=== PATIENT | female | born 1955 | race Caucasian/White ===

== ENCOUNTER 2024-12-18 15:28 | Inpatient (IN) ==
--- NOTE | 2024-12-18 16:19 | XRay Report ---
Clinical History: Shortness of breath Technique: A frontal view of the chest was obtained Findings: There is mild patchy opacity in the right upper lobe. The heart size is within normal limits. No pleural effusion or pneumothorax is seen. There is no definite pulmonary nodule. No fracture is noted. No foreign body is seen Impression: Suspected mild right upper lobe bronchopneumonia Electronically signed by Janusz Rollins 12-18-2024 4:19 PM
[2024-12-18 17:38] LABS: BUN Creatinine Ratio 17.4 (10-20); Blood Urea Nitrogen 8 mg/dl (6-23); Calcium 9.4 mg/dl (8.6-10.3); Carbon Dioxide > 45 mmol/L (21-32); Chloride 91 mmol/L (98-107); Glucose 97 mg/dl (70-99(Fasting)); Sodium 141 mmol/L (136-145)
[2024-12-18 17:55] LABS: HCO3 VBG 54 mmol/L; Oxygen Saturation VBG 84.6 %; PCO2 VBG 91 mmHg (38-50); PO2 VBG 52 mmHg; pH VBG 7.38 (7.36-7.41)
[2024-12-18 18:06] LABS: Adenovirus PCR Not Detected (NotDetected); Bordetella parapertussis PCR Not Detected (NotDetected); Bordetella pertussis PCR Not Detected (NotDetected); Chlamydia pneumoniae PCR Not Detected (NotDetected); Coronavirus 229E PCR Not Detected (NotDetected); Coronavirus CoV-2 (COVID19)PCR Not Detected (NotDetected); Coronavirus HKU1 PCR Not Detected (NotDetected); Coronavirus NL63 PCR Not Detected (NotDetected); Coronavirus OC43PCR Not Detected (NotDetected); Human Metapneumovirus PCR Not Detected (NotDetected); Influenza A PCR Not Detected (NotDetected); Influenza B PCR Not Detected (NotDetected); Mycoplasma pneumoniae PCR Not Detected (NotDetected); Parainfluenza Virus 1 PCR Not Detected (NotDetected); Parainfluenza Virus 2 PCR Not Detected (NotDetected); Parainfluenza Virus 3 PCR Not Detected (NotDetected); Parainfluenza Virus 4 PCR Not Detected (NotDetected); Respiratory Syncytial VirusPCR Not Detected (NotDetected); Rhinovirus/Enterovirus PCR Not Detected (NotDetected)
[2024-12-18] MEDS: ALBUT/IPRATROP 3MG/0.5MG NEB 3 ML VIAL NEB ONE (18:39)
[2024-12-18] MEDS: methylPREDNISolone 125 MG/2 ML VIAL IV STA (18:40)
[2024-12-18 18:59] LABS: Potassium 3.7 mmol/L (3.5-5.1)
[2024-12-18 19:10] LABS: Basophils # (auto) 0.02 K/uL (0.00-0.20); Basophils % (auto) 0.2 %; Eosinophils # (auto) 0.15 K/uL (0.00-0.50); Eosinophils % (auto) 1.5 %; Hematocrit (blood only) 36.7 % (37.0-47.0); Hemoglobin 11.2 g/dl (12.0-16.0); Immature Granulocytes # (auto) 0.02 K/uL (0.01-0.20); Immature Granulocytes % (auto) 0.2 %; Lymphocytes # (auto) 2.47 K/uL (1.20-3.40); Mean Corpuscular Hemoglobin 32.6 pg (25.0-34.0); Mean Corpuscular Hgb Conc 30.5 g/dL (32.0-36.0); Mean Corpuscular Volume 106.7 fL (80.0-100.0); Mean Platelet Volume 9.5 fL (9.4-12.4); Monocytes # (auto) 0.85 K/uL (0.11-0.59); Monocytes % (auto) 8.3 %; Neutrophils # (auto) 6.79 K/uL (1.40-6.50); Neutrophils % (auto) 65.8 %; Platelet Count 363 K/uL (130-400); RDW Coefficient of Variation 13.3 % (11.5-14.5); RDW Standard Deviation 52.3 fL (36.4-46.3); Red Blood Count 3.44 M/uL (4.20-5.40)
[2024-12-18] MEDS: cefTRIAXone SODIUM 2,000 MG/50 ML BAG IV STA (19:13)
[2024-12-18] MEDS: AZITHROMYCIN 250 MG TAB PO ONE (19:13)
--- NOTE | 2024-12-18 20:33 | History & Physical Report ---
Date of Service December 18, 2024 Assessment & Plan (1) Pneumonia: Plan: .Patient reports rigors and "not feeling right". She reports feeling similarly in the past when she had PNA. Patient's CXR is suggestive of possible RUL bronchopneumonia. She is afebrile, HD stable, no leukocytosis. -Admit to medical -Check Procalcitonin, CBC with AM labs -Ceftriaxone and Azithromycin for treatment of presumed CAP -Patient will need to have followup CXR to document clearance of her pneumonia -Flutter valve and incentive spirometry (2) COPD (chronic obstructive pulmonary disease): Plan: Chronic. Patient with compensated chronic hypercarbic respiratory failure. Minimal wheezing noted on exam -Continue supplemental O2 -DuoNeb q 4 hours -Albuterol q3 hours PRN -Smoking cessation counseling -Nicotine patch per patient request -BiPAP as needed -Prednisone taper Patient is scheduled to see Pulmonary on 01/10/25. She has never had formal PFTs. Should have a sleep study as well - suspect may need nocturnal NIPPV (3) HLD (hyperlipidemia): Plan: Chronic. Stable -Continue Atorvastatin 40mg po daily (4) HTN (hypertension): Plan: Chronic. Blood pressure is borderline low -Will hold Amlodipine, Losartan and Lasix -Continue Carvedilol -Monitor -LR at 80mL/hr x 1L ordered -Encourage PO intake Plan GERD -Continue Protonix 40mg po daily Anxiety -Continue Trazodone -Continue Duloxetine and Clonazepam F/E/N - LR at 80mL/hr x 1L, electroltyes WNL, heart healthy diet as tolerated Ppx - Lvoenox for DVT prophylaxis Code - Full Dispo - Observation to medical History of Present Illness Chief Complaint: weakness, dizziness Primary Care Provider: Kaden Toth Kelly Bundy is a 69yo female with history of COPD on home O2 3L, MS, HTN and HLP presenting from home with complaint of "not feeling right". Patient thinks that yesterday she felt ok with no acute complaints. Today she woke up and felt very dizzy and lightheaded, she had some blurry vision as well as difficulty remembering the day before. Also with generalized weakness, rigors and profuse, watery diarrhea. Patient had outpatient labs performed and was contacted and told to come to the ER due to high bicarbonate levels. Patient denies fever, chills, chest pain, tightness, palpitations. No abdominal pain, nausea, vomiting. In the ER patient placed on BiPAP due to elevation pCO2 levels on VBG Allergies Allergy/AdvReac Type Severity Reaction Status Date / Time amoxicillin [From Augmentin] AdvReac Gastrointestinal Verified 12/18/24 21:06 Upset clavulanic acid AdvReac Gastrointestinal Verified 12/18/24 21:06 [From Augmentin] Upset lisinopril AdvReac Cough Verified 12/18/24 21:06 Home Medications Medication Instructions Recorded Confirmed Type cetirizine 10 mg tablet (Zyrtec) 10 mg PO DAILY 10/03/24 12/18/24 History amlodipine 10 mg tablet 10 mg PO DAILY 12/18/24 12/18/24 History atorvastatin 40 mg tablet 40 mg PO DAILY 12/18/24 12/18/24 History carvedilol 6.25 mg tablet 6.25 mg PO BID 12/18/24 12/18/24 History clonazepam 2 mg tablet 1 mg PO QID 12/18/24 12/18/24 History duloxetine 60 mg capsule,delayed 120 mg PO DAILY 12/18/24 12/18/24 History release ferrous sulfate 325 mg (65 mg 325 mg PO DAILY 12/18/24 12/18/24 History iron) tablet folic acid 1 mg tablet 1 mg PO DAILY 12/18/24 12/18/24 History furosemide 40 mg tablet 40 mg PO DAILY 12/18/24 12/18/24 History gabapentin 800 mg tablet 800 mg PO TID 12/18/24 12/18/24 History losartan 100 mg tablet 100 mg PO DAILY 12/18/24 12/18/24 History pantoprazole 40 mg tablet,delayed 40 mg PO DAILY 12/18/24 12/18/24 History release trazodone 100 mg tablet 200 mg PO HS 12/18/24 12/18/24 History Past Med/Surg History Problem List COPD (chronic obstructive pulmonary disease) Pneumonia (Acute) Cigarette smoker Had quit smoking for a bit, but started up again. Has been smoking consistently for 2 months, but has previously smoked for 50 years. Pt unsure of what age she was when she started. Currently smokes 2 pk/day. Medical History HLD (hyperlipidemia) HTN (hypertension) Social History Smoking Status: Light tobacco smoker Tobacco Type: Cigarettes Do You Dip or Chew Tobacco: No; Hx Alcohol Use: No Hx Substance Use: No Preferred Language: Icelandic Communication Ability: Effective Physicist Cryogenics Required: No Current Living Situation: Spouse and Family Feels Safe at Home: Yes Safety Concerns: Feels Safe At This Time Assistive Devices: Denture - Upper, Denture - Lower, Glasses and Walker Review of Systems Review of Systems: All systems reviewed & are unremarkable except as noted in HPI & below Physical Exam Physical Exam: General: patient resting comfortably, NAD, non-toxic in appearance, AA&O x 4, BiPAP in place Skin: warm, dry, intact, no rashes or lesions HEENT: NC/AT, PERRL, EOMI, anicteric sclera, conjunctiva without injection, external ear normal to inspection and nontender, nares patent, moist mucus membranes, dentition intact, no oropharyngeal lesions, neck supple, trachea midline, no LAD, no thyromegaly, no JVD Heart: +S1/S2, regular, no m/r/g Lungs: equal air entry bilaterally, scattered end-expiratory wheezing, no rhonchi or rales Abd: +BS, soft, NT/ND, no masses/organomegaly/ascites Ext: warm, 2+ pulses in UE/LE bilaterally, no clubbing/cyanosis or edema Neuro: nonfocal, patient AA&O x 4, speech intact, no facial droop, moving all extremities on command with equal strength 5/5 Results & Data Results & Data Vital Signs (Past 12 Hours) Vital Signs Temp Pulse Resp BP Pulse Ox O2 Del Method O2 Flow Rate 12/18/24 20:00 80 20 111/76 90 12/18/24 19:30 79 14 85/63 L 94 12/18/24 19:00 84 18 136/77 94 BiPAP 12/18/24 18:31 79 18 95 12/18/24 17:41 80 12/18/24 15:36 37.4 C 81 20 161/87 H 95 Nasal Cannula 5 FiO2 12/18/24 20:00 12/18/24 19:30 12/18/24 19:00 12/18/24 18:31 40 12/18/24 17:41 02/19/25 15:36 Laboratory Results Laboratory Results WBC 10.30 K/ul (4.8-10.8) 12/18/24 18:52 RBC 3.44 M/uL (4.20-5.40) L 12/18/24 18:52 Hgb 11.2 g/dl (12.0-16.0) L 12/18/24 18:52 Hct 36.7 % (37.0-47.0) L 12/18/24 18:52 MCV 106.7 fL (80.0-100.0) H 12/18/24 18:52 MCH 32.6 pg (25.0-34.0) 12/18/24 18:52 MCHC 30.5 g/dL (32.0-36.0) L 12/18/24 18:52 RDW Std Deviation 52.3 fL (36.4-46.3) H 12/18/24 18:52 RDW Coeff of Deja 13.3 % (11.5-14.5) 12/18/24 18:52 Plt Count 363 K/uL (130-400) 12/18/24 18:52 MPV 9.5 fL (9.4-12.4) 12/18/24 18:52 Immature Gran % (Auto) 0.2 % 12/18/24 18:52 Neut % (Auto) 65.8 % 12/18/24 18:52 Lymph % (Auto) 24.0 % 12/18/24 18:52 Stone % (Auto) 8.3 % 12/18/24 18:52 Eos % (Auto) 1.5 % 12/18/24 18:52 Baso % (Auto) 0.2 % 12/18/24 18:52 Neut # (Auto) 6.79 K/uL (1.40-6.50) H 12/18/24 18:52 Lymph # (Auto) 2.47 K/uL (1.20-3.40) 12/18/24 18:52 Stone # (Auto) 0.85 K/uL (0.11-0.59) H 12/18/24 18:52 Eos # (Auto) 0.15 K/uL (0.00-0.50) 12/18/24 18:52 Baso # (Auto) 0.02 K/uL (0.00-0.20) 12/18/24 18:52 Immature Gran # (Auto) 0.02 K/uL (0.01-0.20) 12/18/24 18:52 Absolute Nucleated RBC Cancelled 12/18/24 16:53 Nucleated RBC % (auto) Cancelled 12/18/24 16:53 Neutrophils % (Manual) Cancelled 12/18/24 16:53 Band Neutrophils % Cancelled 12/18/24 16:53 Lymphocytes % (Manual) Cancelled 12/18/24 16:53 Prolymphocyte % Cancelled 12/18/24 16:53 Reactive Lymphs % (Man) Cancelled 12/18/24 16:53 Monocytes % (Manual) Cancelled 12/18/24 16:53 Eosinophils % (Manual) Cancelled 12/18/24 16:53 Basophils % (Manual) Cancelled 12/18/24 16:53 Metamyelocytes % (Man) Cancelled 12/18/24 16:53 Myelocytes % (Man) Cancelled 12/18/24 16:53 Promyelocytes % (Man) Cancelled 12/18/24 16:53 Blast Cells % (Manual) Cancelled 12/18/24 16:53 Plasma Cell % (Manual) Cancelled 12/18/24 16:53 Other Cells % Cancelled 12/18/24 16:53 Nucleated RBC % Cancelled 12/18/24 16:53 Neutrophils # (Manual) Cancelled 12/18/24 16:53 Band Neutrophils # Cancelled 12/18/24 16:53 Total Absolute Neuts Cancelled 12/18/24 16:53 Lymphocytes # (Manual) Cancelled 12/18/24 16:53 Prolymphocyte # Cancelled 12/18/24 16:53 Reactive Lymphs # Cancelled 12/18/24 16:53 Total Abs Lymphocytes Cancelled 12/18/24 16:53 Monocytes # (Manual) Cancelled 12/18/24 16:53 Eosinophils # (Manual) Cancelled 12/18/24 16:53 Basophils # (Manual) Cancelled 12/18/24 16:53 Metamyelocytes # (Man) Cancelled 12/18/24 16:53 Myelocytes # (Manual) Cancelled 12/18/24 16:53 Promyelocytes # (Man) Cancelled 12/18/24 16:53 Blast Cells # (Man) Cancelled 12/18/24 16:53 Plasma Cell # (Manual) Cancelled 12/18/24 16:53 Other Cells # Cancelled 12/18/24 16:53 Nucleated RBCs # (Man) Cancelled 12/18/24 16:53 Hypersegmented Neuts Cancelled 12/18/24 16:53 Hyposegmented Neuts Cancelled 12/18/24 16:53 Hypogranular Neuts Cancelled 12/18/24 16:53 Large Granular Lymphs Cancelled 12/18/24 16:53 # Lrg Granular Lymphs Cancelled 12/18/24 16:53 Hairy Cells Cancelled 12/18/24 16:53 Smudge Cells Cancelled 12/18/24 16:53 Toxic Granulation Cancelled 12/18/24 16:53 Toxic Vacuolation Cancelled 12/18/24 16:53 Dohle Bodies Cancelled 12/18/24 16:53 Catrachita Rods Cancelled 12/18/24 16:53 Platelet Estimate Cancelled 12/18/24 16:53 Hypogranular Platelets Cancelled 12/18/24 16:53 Giant Platelets Cancelled 12/18/24 16:53 Platelet Satelliting Cancelled 12/18/24 16:53 RBC Morphology Cancelled 12/18/24 16:53 Polychromasia Cancelled 12/18/24 16:53 Hypochromasia Cancelled 12/18/24 16:53 Poikilocytosis Cancelled 12/18/24 16:53 Basophilic Stippling Cancelled 12/18/24 16:53 Anisocytosis Cancelled 12/18/24 16:53 Microcytosis Cancelled 12/18/24 16:53 Macrocytosis Cancelled 12/18/24 16:53 Spherocytes Cancelled 12/18/24 16:53 Pappenheimer Bodies Cancelled 12/18/24 16:53 Sickle Cells Cancelled 12/18/24 16:53 Target Cells Cancelled 12/18/24 16:53 Tear Drop Cells Cancelled 12/18/24 16:53 Ovalocytes Cancelled 12/18/24 16:53 Stomatocytes Cancelled 12/18/24 16:53 Fowler-[place] Bodies Cancelled 12/18/24 16:53 Echinocytes Cancelled 12/18/24 16:53 Acanthocytes (Spur) Cancelled 12/18/24 16:53 Rouleaux Cancelled 12/18/24 16:53 RBC Agglutinates Cancelled 12/18/24 16:53 Schistocytes Cancelled 12/18/24 16:53 Sezary Cell Cancelled 12/18/24 16:53 VBG pH 7.39 (7.36-7.41) 12/18/24 20:18 VBG pCO2 86 mmHg (38-50) H 12/18/24 20:18 VBG pO2 60 mmHg 12/18/24 20:18 VBG HCO3 52 mmol/L 12/18/24 20:18 VBG O2 Saturation 91.4 % 12/18/24 20:18 VBG Base Excess 21.9 mEq/L 12/18/24 20:18 Sodium 141 mmol/L (136-145) 12/18/24 16:53 Potassium 3.7 mmol/L (3.5-5.1) 12/18/24 17:36 Chloride 91 mmol/L (98-107) L 12/18/24 16:53 Carbon Dioxide > 45 mmol/L (21-32) H* 12/18/24 16:53 Anion Gap TNP 12/18/24 16:53 BUN 8 mg/dl (6-23) 12/18/24 16:53 Creatinine 0.46 mg/dl (0.6-1.2) L 12/18/24 16:53 Est Cr Clr Drug Dosing Not Reportable 12/18/24 16:53 eGFR 104.17 12/18/24 16:53 BUN/Creatinine Ratio 17.4 (10-20) 12/18/24 16:53 Glucose 97 mg/dl (70-99(Fasting)) 12/18/24 16:53 Calcium 9.4 mg/dl (8.6-10.3) 12/18/24 16:53 Phosphorus 3.4 mg/dl (2.5-4.9) 12/18/24 17:36 Magnesium 2.0 mg/dl (1.7-2.4) 12/18/24 17:36 Procalcitonin < 0.02 ng/ml (0-0.5) 12/18/24 18:53 Adenovirus (PCR) Not Detected (NotDetected) 12/18/24 16:50 B. pertussis DNA (PCR) Not Detected (NotDetected) 12/18/24 16:50 B.parapertussis DNA PCR Not Detected (NotDetected) 12/18/24 16:50 C. pneumoniae DNA (PCR) Not Detected (NotDetected) 12/18/24 16:50 Coronavirus OC43 (PCR) Not Detected (NotDetected) 12/18/24 16:50 Coronavirus HKU1 (PCR) Not Detected (NotDetected) 12/18/24 16:50 Coronavirus 229E (PCR) Not Detected (NotDetected) 12/18/24 16:50 SARS-CoV-2 (PCR) Not Detected (NotDetected) 12/18/24 16:50 Coronavirus NL63 (PCR) Not Detected (NotDetected) 12/18/24 16:50 Human Metapneumovir PCR Not Detected (NotDetected) 12/18/24 16:50 Influenza Type A (PCR) Not Detected (NotDetected) 12/18/24 16:50 Influenza Type B (PCR) Not Detected (NotDetected) 12/18/24 16:50 M. pneumoniae (PCR) Not Detected (NotDetected) 12/18/24 16:50 Parainfluenza 1 (PCR) Not Detected (NotDetected) 12/18/24 16:50 Parainfluenza 2 (PCR) Not Detected (NotDetected) 12/18/24 16:50 Parainfluenza 3 (PCR) Not Detected (NotDetected) 12/18/24 16:50 Parainfluenza 4 (PCR) Not Detected (NotDetected) 12/18/24 16:50 RSV (PCR) Not Detected (NotDetected) 12/18/24 16:50 Entero/Rhino (PCR) Not Detected (NotDetected) 12/18/24 16:50 Blood Parasites ID Cancelled 12/18/24 16:53 Impressions Chest X-Ray 12/18/24 15:53 Clinical History: Shortness of breath Technique: A frontal view of the chest was obtained Findings: There is mild patchy opacity in the right upper lobe. The heart size is within normal limits. No pleural effusion or pneumothorax is seen. There is no definite pulmonary nodule. No fracture is noted. No foreign body is seen Impression: Suspected mild right upper lobe bronchopneumonia Electronically signed by Janusz Rollins 12-18-2024 4:19 PM PG Care Time/CCT Total # of Minutes Spent Total Time Spent with Patient: Total time spent is greater than 50% in coordination of care (as documented) at patient's floor/unit and/or counseling patient: Coding Level of Care Code 31828 INT INP/OBS CARE 3/75MIN Diagnoses Pneumonia J18.9 Laterality: right Lung location: unspecified part of lung Pneumonia type: due to unspecified organism COPD (chronic obstructive pulmonary disease) J44.9 HLD (hyperlipidemia) E78.5 HTN (hypertension) I10 (1) Pneumonia Laterality: right Lung location: unspecified part of lung Pneumonia type: due to unspecified organism Qualified Code(s): J18.9 - Pneumonia, unspecified organism
[2024-12-18 20:34] LABS: Base Excess VBG 21.9 mEq/L; HCO3 VBG 52 mmol/L; Oxygen Saturation VBG 91.4 %; PCO2 VBG 86 mmHg (38-50); PO2 VBG 60 mmHg; pH VBG 7.39 (7.36-7.41)
--- NOTE | 2024-12-18 20:55 | Emergency Department Note ---
History of Present Illness General Chief Complaint: Illness Stated Complaint: AB NORMAL LABS Time Seen by Provider: 12/18/24 15:37 History of Present Illness Provider Complaint: + abnormal lab Returns today for: + called because of abnormal lab/test Description of abnormal result: High bicarb Context: + called for abnormal lab result Associated symptoms: + shortness of breath and + other (Cough weakness diarrhea); no chest pain Home Medications Medication Instructions Recorded Confirmed Type cetirizine 10 mg tablet (Zyrtec) 10 mg PO DAILY 10/03/24 10/03/24 History amlodipine 10 mg tablet 10 mg PO DAILY 12/18/24 12/18/24 History atorvastatin 40 mg tablet 40 mg PO DAILY 12/18/24 12/18/24 History carvedilol 6.25 mg tablet 6.25 mg PO BID 12/18/24 12/18/24 History clonazepam 2 mg tablet 1 mg PO QID 12/18/24 12/18/24 History duloxetine 60 mg capsule,delayed 120 mg PO DAILY 12/18/24 12/18/24 History release folic acid 1 mg tablet 1 mg PO DAILY 12/18/24 12/18/24 History furosemide 40 mg tablet 40 mg PO DAILY 12/18/24 12/18/24 History gabapentin 800 mg tablet 800 mg PO TID 12/18/24 12/18/24 History losartan 100 mg tablet 100 mg PO DAILY 12/18/24 12/18/24 History pantoprazole 40 mg tablet,delayed 40 mg PO DAILY 12/18/24 12/18/24 History release trazodone 100 mg tablet 200 mg PO HS 12/18/24 12/18/24 History Allergies Allergy/AdvReac Type Severity Reaction Status Date / Time amoxicillin [From Augmentin] AdvReac Gastrointestinal Verified 12/11/24 10:39 Upset clavulanic acid AdvReac Gastrointestinal Verified 12/11/24 10:39 [From Augmentin] Upset lisinopril AdvReac Cough Verified 12/11/24 10:39 Past Med/Surg History Problem List Pneumonia (Acute) Cigarette smoker Had quit smoking for a bit, but started up again. Has been smoking consistently for 2 months, but has previously smoked for 50 years. Pt unsure of what age she was when she started. Currently smokes 2 pk/day. Medical History (Updated 12/18/24 @ 21:04 by Vincenzo Ramirez MD) HLD (hyperlipidemia) HTN (hypertension) Social History Smoking Status: Current every day smoker Tobacco Type: Cigarettes Feels Safe at Home: Yes Physical Exam 2 Vital Signs: Vital Signs - 24 hr 12/18/24 15:36 12/18/24 17:41 12/18/24 18:31 Temperature 37.4 C Temperature Source Oral Pulse Rate 81 80 79 Pulse Rate from Sp O2 Sensor Respiratory Rate 20 18 Respiratory Effort / Characteristics Non-Labored Respiratory Depth Normal Respiratory Patter n Regular Blood Pressure 161/87 H Blood Pressure Hayley n 111 Pulse Oximetry 95 95 Oxygen Delivery Me thod Nasal Cannula Oxygen Flow Rate 5 Fraction of Inspir ed Oxygen 40 Sepsis Recent Feve r Within 48 Hours No Sepsis New/Unexpla ined Change in Men ramos Status No Sepsis Action Take n by Nursing No Action Required 12/18/24 19:00 12/18/24 19:30 12/18/24 20:00 Temperature Temperature Source Pulse Rate 84 79 80 Pulse Rate from Sp O2 Sensor 79 80 Respiratory Rate 18 14 20 Respiratory Effort / Characteristics Respiratory Depth Respiratory Patter n Blood Pressure 136/77 85/63 L 111/76 Blood Pressure Hayley n 100 69 91 Pulse Oximetry 94 94 90 Oxygen Delivery Me thod BiPAP Oxygen Flow Rate Fraction of Inspir ed Oxygen Sepsis Recent Feve r Within 48 Hours Sepsis New/Unexpla ined Change in Men ramos Status Sepsis Action Take n by Nursing Physical Exam: Physical Exam GENERAL: oriented to person, place, and time. appears well-developed and well- nourished. HENT: Exam performed. - Head: Normocephalic and atraumatic. EYES: Conjunctivae and EOM are normal. Right eye exhibits no discharge. Left eye exhibits no discharge. No scleral icterus. NECK: Normal range of motion. Neck supple. No JVD present. CV: Normal rate, regular rhythm, normal heart sounds and intact distal pulses. There is no peripheral edema. Palpable radial pulses bue. PULM/CHEST: Expiratory wheezes bilaterally. ABD: The abdomen is soft. There is no tenderness. NEURO: Motor and sensation grossly intact. SKIN: Skin is warm and dry. He is not diaphoretic. PSYCH: normal mood and affect. Behavior is normal. Judgment and thought content normal. Course Course 1536: The patient was evaluated in room C10. A complete history and physical exam was performed Cardiac monitoring: An order was placed for continuous cardiac monitoring. The monitor shows a rate of 80 with sinus rhythm interpreted by me 1830: Vital signs stable. Patient reporting her shortness of breath is worse. Labs are significant for VBG showing pCO2 of 91 venous pH 7.38 bicarb 54 and VBG creatinine 45 and BMP. Patient be started on hour-long DuoNeb through BiPAP and given given Solu-Medrol. Chest x-ray shows pneumonia. Patient will be treated with Rocephin and azithromycin. 1916: Discussed case with admitting hospitalist Dr. Jones. She was stating that the patient might be able to be discharged home as she thinks that the respiratory acidosis is chronic given the normal pH. She will evaluate the patient and then decide disposition. 2039: Vital signs stable on BiPAP. Repeat VBG shows venous pH of 7.[address] Jones assessed the patient and decided that patient would benefit from inpatient admission. She will place orders. Administered Medications Discontinued Medications Albuterol (Albut/Ipratrop 3mg/0.5mg Neb 3 Ml Vial) 12 ml NEB ONE ONE; Protocol Stop: 12/18/24 18:31 Last Admin: 12/18/24 18:39 Dose: 12 ml Documented By: KYAW Azithromycin (Azithromycin 250 Mg Tab) 500 mg PO NOW ONE Stop: 12/18/24 18:52 Last Admin: 12/18/24 19:13 Dose: 500 mg Documented By: TALIB Ceftriaxone Sodium (Rocephin) 2,000 mg in 50 mls @ 100 mls/hr IV NOW STA Stop: 12/18/24 19:20 Last Infusion: 12/18/24 20:03 Dose: Infused Documented By: Admin: 12/18/24 19:13 Dose: 100 mls/hr Documented By: TALIB Methylprednisolone (Methylprednisolone 125 Mg/2 Ml Vial) 125 mg IV NOW STA Stop: 12/18/24 18:31 Last Admin: 12/18/24 18:40 Dose: 125 mg Documented By: KYAW Medical Decision Making Laboratory Data Attestation: I reviewed the patient's lab results. 12/18/24 18:52 12/18/24 17:36 Lab Results 12/18/24 12/18/24 12/18/24 Range/Units 16:50 16:53 17:36 WBC Cancelled RBC Cancelled Hgb Cancelled Hct Cancelled MCV Cancelled MCH Cancelled MCHC Cancelled RDW Std Deviation Cancelled RDW Coeff of Deja Cancelled Plt Count Cancelled MPV Cancelled Immature Gran % (Auto) Cancelled Neut % (Auto) Cancelled Lymph % (Auto) Cancelled [place] % (Auto) Cancelled Eos % (Auto) Cancelled Baso % (Auto) Cancelled Neut # (Auto) Cancelled Lymph # (Auto) Cancelled [place] # (Auto) Cancelled Eos # (Auto) Cancelled Baso # (Auto) Cancelled Immature Gran # (Auto) Cancelled Absolute Nucleated RBC Cancelled Nucleated RBC % (auto) Cancelled Neutrophils % (Manual) Cancelled Band Neutrophils % Cancelled Lymphocytes % (Manual) Cancelled Prolymphocyte % Cancelled Reactive Lymphs % (Man) Cancelled Monocytes % (Manual) Cancelled Eosinophils % (Manual) Cancelled Basophils % (Manual) Cancelled Metamyelocytes % (Man) Cancelled Myelocytes % (Man) Cancelled Promyelocytes % (Man) Cancelled Blast Cells % (Manual) Cancelled Plasma Cell % (Manual) Cancelled Other Cells % Cancelled Nucleated RBC % Cancelled Neutrophils # (Manual) Cancelled Band Neutrophils # Cancelled Total Absolute Neuts Cancelled Lymphocytes # (Manual) Cancelled Prolymphocyte # Cancelled Reactive Lymphs # Cancelled Total Abs Lymphocytes Cancelled Monocytes # (Manual) Cancelled Eosinophils # (Manual) Cancelled Basophils # (Manual) Cancelled Metamyelocytes # (Man) Cancelled Myelocytes # (Manual) Cancelled Promyelocytes # (Man) Cancelled Blast Cells # (Man) Cancelled Plasma Cell # (Manual) Cancelled Other Cells # Cancelled Nucleated RBCs # (Man) Cancelled Hypersegmented Neuts Cancelled Hyposegmented Neuts Cancelled Hypogranular Neuts Cancelled Large Granular Lymphs Cancelled # Lrg Granular Lymphs Cancelled Hairy Cells Cancelled Smudge Cells Cancelled Toxic Granulation Cancelled Toxic Vacuolation Cancelled Dohle Bodies Cancelled Catrachita Rods Cancelled Platelet Estimate Cancelled Hypogranular Platelets Cancelled Giant Platelets Cancelled Platelet Satelliting Cancelled RBC Morphology Cancelled Polychromasia Cancelled Hypochromasia Cancelled Poikilocytosis Cancelled Basophilic Stippling Cancelled Anisocytosis Cancelled Microcytosis Cancelled Macrocytosis Cancelled Spherocytes Cancelled Pappenheimer Bodies Cancelled Sickle Cells Cancelled Target Cells Cancelled Tear Drop Cells Cancelled Ovalocytes Cancelled Stomatocytes Cancelled Fowler-Cayce Bodies Cancelled Echinocytes Cancelled Acanthocytes (Spur) Cancelled Rouleaux Cancelled RBC Agglutinates Cancelled Schistocytes Cancelled Sezary Cell Cancelled VBG pH 7.38 (7.36-7.41) VBG pCO2 91 H (38-50) mmHg VBG pO2 52 mmHg VBG HCO3 54 mmol/L VBG O2 Saturation 84.6 % VBG Base Excess 23.0 mEq/L Sodium 141 (136-145) mmol/L Potassium TNP 3.7 Chloride 91 L (98-107) mmol/L Carbon Dioxide > 45 H* (21-32) mmol/L Anion Gap TNP BUN 8 (6-23) mg/dl Creatinine 0.46 L (0.6-1.2) mg/dl Est Cr Clr Drug Dosing Not Reportable eGFR 104.17 BUN/Creatinine Ratio 17.4 (10-20) Glucose 97 (70-99(Fasting)) mg/dl Calcium 9.4 (8.6-10.3) mg/dl Adenovirus (PCR) Not Detected (NotDetected) B. pertussis DNA (PCR) Not Detected (NotDetected) B.parapertussis DNA PCR Not Detected (NotDetected) C. pneumoniae DNA (PCR) Not Detected (NotDetected) Coronavirus OC43 (PCR) Not Detected (NotDetected) Coronavirus HKU1 (PCR) Not Detected (NotDetected) Coronavirus 229E (PCR) Not Detected (NotDetected) SARS-CoV-2 (PCR) Not Detected (NotDetected) Coronavirus NL63 (PCR) Not Detected (NotDetected) Human Metapneumovir PCR Not Detected (NotDetected) Influenza Type A (PCR) Not Detected (NotDetected) Influenza Type B (PCR) Not Detected (NotDetected) M. pneumoniae (PCR) Not Detected (NotDetected) Parainfluenza 1 (PCR) Not Detected (NotDetected) Parainfluenza 2 (PCR) Not Detected (NotDetected) Parainfluenza 3 (PCR) Not Detected (NotDetected) Parainfluenza 4 (PCR) Not Detected (NotDetected) RSV (PCR) Not Detected (NotDetected) Entero/Rhino (PCR) Not Detected (NotDetected) Blood Parasites ID Cancelled 12/18/24 12/18/24 Range/Units 18:52 20:18 WBC 10.30 RBC 3.44 L Hgb 11.2 L Hct 36.7 L MCV 106.7 H MCH 32.6 MCHC 30.5 L RDW Std Deviation 52.3 H RDW Coeff of Deja 13.3 Plt Count 363 MPV 9.5 Immature Gran % (Auto) 0.2 Neut % (Auto) 65.8 Lymph % (Auto) 24.0 [place] % (Auto) 8.3 Eos % (Auto) 1.5 Baso % (Auto) 0.2 Neut # (Auto) 6.79 H Lymph # (Auto) 2.47 [place] # (Auto) 0.85 H Eos # (Auto) 0.15 Baso # (Auto) 0.02 Immature Gran # (Auto) 0.02 Absolute Nucleated RBC Nucleated RBC % (auto) Neutrophils % (Manual) Band Neutrophils % Lymphocytes % (Manual) Prolymphocyte % Reactive Lymphs % (Man) Monocytes % (Manual) Eosinophils % (Manual) Basophils % (Manual) Metamyelocytes % (Man) Myelocytes % (Man) Promyelocytes % (Man) Blast Cells % (Manual) Plasma Cell % (Manual) Other Cells % Nucleated RBC % Neutrophils # (Manual) Band Neutrophils # Total Absolute Neuts Lymphocytes # (Manual) Prolymphocyte # Reactive Lymphs # Total Abs Lymphocytes Monocytes # (Manual) Eosinophils # (Manual) Basophils # (Manual) Metamyelocytes # (Man) Myelocytes # (Manual) Promyelocytes # (Man) Blast Cells # (Man) Plasma Cell # (Manual) Other Cells # Nucleated RBCs # (Man) Hypersegmented Neuts Hyposegmented Neuts Hypogranular Neuts Large Granular Lymphs # Lrg Granular Lymphs Hairy Cells Smudge Cells Toxic Granulation Toxic Vacuolation Dohle Bodies Catrachita Rods Platelet Estimate Hypogranular Platelets Giant Platelets Platelet Satelliting RBC Morphology Polychromasia Hypochromasia Poikilocytosis Basophilic Stippling Anisocytosis Microcytosis Macrocytosis Spherocytes Pappenheimer Bodies Sickle Cells Target Cells Tear Drop Cells Ovalocytes Stomatocytes Fowler-Cayce Bodies Echinocytes Acanthocytes (Spur) Rouleaux RBC Agglutinates Schistocytes Sezary Cell VBG pH 7.39 (7.36-7.41) VBG pCO2 86 H (38-50) mmHg VBG pO2 60 mmHg VBG HCO3 52 mmol/L VBG O2 Saturation 91.4 % VBG Base Excess 21.9 mEq/L Sodium (136-145) mmol/L Potassium Chloride (98-107) mmol/L Carbon Dioxide (21-32) mmol/L Anion Gap BUN (6-23) mg/dl Creatinine (0.6-1.2) mg/dl Est Cr Clr Drug Dosing eGFR BUN/Creatinine Ratio (10-20) Glucose (70-99(Fasting)) mg/dl Calcium (8.6-10.3) mg/dl Adenovirus (PCR) (NotDetected) B. pertussis DNA (PCR) (NotDetected) B.parapertussis DNA PCR (NotDetected) C. pneumoniae DNA (PCR) (NotDetected) Coronavirus OC43 (PCR) (NotDetected) Coronavirus HKU1 (PCR) (NotDetected) Coronavirus 229E (PCR) (NotDetected) SARS-CoV-2 (PCR) (NotDetected) Coronavirus NL63 (PCR) (NotDetected) Human Metapneumovir PCR (NotDetected) Influenza Type A (PCR) (NotDetected) Influenza Type B (PCR) (NotDetected) M. pneumoniae (PCR) (NotDetected) Parainfluenza 1 (PCR) (NotDetected) Parainfluenza 2 (PCR) (NotDetected) Parainfluenza 3 (PCR) (NotDetected) Parainfluenza 4 (PCR) (NotDetected) RSV (PCR) (NotDetected) Entero/Rhino (PCR) (NotDetected) Blood Parasites ID Imaging Data Attestation: I personally reviewed and interpreted this imaging study as follows: My Impression: Chest x-ray: Right-sided pneumonia Radiologist's Impression: Chest X-Ray 12/18/24 15:53 Clinical History: Shortness of breath Technique: A frontal view of the chest was obtained Findings: There is mild patchy opacity in the right upper lobe. The heart size is within normal limits. No pleural effusion or pneumothorax is seen. There is no definite pulmonary nodule. No fracture is noted. No foreign body is seen Impression: Suspected mild right upper lobe bronchopneumonia Electronically signed by Janusz Rollins 12-18-2024 4:19 PM ECG Data Attestation: I personally reviewed and interpreted this ECG as follows: Rate (beats per minute): 82 Rhythm: normal sinus Findings: no ST depression, no ST elevation or no prolonged QT MDM Narrative 153: The patient was evaluated in room C10. A complete history and physical exam was performed Cardiac monitoring: An order was placed for continuous cardiac monitoring. The monitor shows a rate of 80 with sinus rhythm interpreted by me 183: Vital signs stable. Patient reporting her shortness of breath is worse. Labs are significant for VBG showing pCO2 of 91 venous pH 7.38 bicarb 54 and VBG creatinine 45 and BMP. Patient be started on hour-long DuoNeb through BiPAP and given given Solu-Medrol. Chest x-ray shows pneumonia. Patient will be treated with Rocephin and azithromycin. 1916: Discussed case with admitting hospitalist Dr. Jones. She was stating that the patient might be able to be discharged home as she thinks that the respiratory acidosis is chronic given the normal pH. She will evaluate the patient and then decide disposition. 2039: Vital signs stable on BiPAP. Repeat VBG shows venous pH of 7.[address] Jones assessed the patient and decided that patient would benefit from inpatient admission. She will place orders. Impression & Plan Pneumonia Critical Care Time Critical Care Time: Yes Total Critical Care Time: 68 I have personally spent greater than 68 minutes of critical care time in the direct management of this patient. This includes bedside care, interpretation of diagnostic studies, and testing, discussion with consultants, patient, and family members, and other required patient management activities. This 68 minutes is in excess of all separately billable procedures. Discharge Plan Visit Data Chief Complaint: Illness Stated Complaint: AB NORMAL LABS ED Provider: Vincenzo Ramirez Discharge Problem: Pneumonia Patient Disposition: Admitted As Inpatient Forms Stand Alone Forms: My [facility] Prescriptions Prescriptions: No Action cetirizine [Zyrtec] 10 mg tablet 10 mg PO DAILY furosemide 40 mg tablet 40 mg PO DAILY atorvastatin 40 mg tablet 40 mg PO DAILY carvedilol 6.25 mg tablet 6.25 mg PO BID gabapentin 800 mg tablet 800 mg PO TID trazodone 100 mg tablet 200 mg PO HS amlodipine 10 mg tablet 10 mg PO DAILY pantoprazole 40 mg tablet,delayed release (DR/EC) 40 mg PO DAILY clonazepam 2 mg tablet 1 mg PO QID folic acid 1 mg tablet 1 mg PO DAILY losartan 100 mg tablet 100 mg PO DAILY duloxetine 60 mg capsule,delayed release(DR/EC) 120 mg PO DAILY Referrals Referrals: Kaden Toth [Primary Care Provider] - Discharge Problem: Pneumonia Qualifiers: Pneumonia type: due to unspecified organism Laterality: right Lung location: u nspecified part of lung Qualified Code(s): J18.9 - Pneumonia, unspecified organism
[2024-12-18] MEDS ORDERED: ONDANSETRON INJ 2 MG/ML 2 ML VIAL IV PRN (22:12)
[2024-12-18] MEDS ORDERED: ALBUTEROL 0.083% NEBU SOLN 3 ML VIAL NEB PRN (22:19)
[2024-12-18 22:36] LABS: Phosphorus 3.4 mg/dl (2.5-4.9)
[2024-12-18] MEDS: ALBUT/IPRATROP 3MG/0.5MG NEB 3 ML VIAL NEB SCH (22:45)
[2024-12-18] MEDS: GABAPENTIN 800 MG TAB PO SCH (23:05)
[2024-12-18] MEDS: traZODone HCL 100 MG TAB PO SCH (23:05)
[2024-12-18] MEDS: clonazePAM 1 MG TAB PO SCH (23:05)
[2024-12-18] MEDS: carvediloL 6.25 MG TAB PO SCH (23:05)
[2024-12-19] MEDS: NICOTINE 14 MG/24 HR PATCH TD STA (00:58)
[2024-12-19] MEDS: NICOTINE 14 MG/24 HR PATCH TD ONE (01:00)
[2024-12-19] MEDS: Patient's HEIGHT &/or WEIGHT Needed STA (01:43)
[2024-12-19] MEDS: LACTATED RINGER'S 1,000 ML IV SCH (04:02)
[2024-12-19 06:34] LABS: Hematocrit (blood only) 37.6 % (37.0-47.0); Hemoglobin 11.6 g/dl (12.0-16.0); Mean Corpuscular Hemoglobin 32.8 pg (25.0-34.0); Mean Corpuscular Hgb Conc 30.9 g/dL (32.0-36.0); Mean Corpuscular Volume 106.2 fL (80.0-100.0); Mean Platelet Volume 9.5 fL (9.4-12.4); Platelet Count 369 K/uL (130-400); RDW Coefficient of Variation 13.2 % (11.5-14.5); RDW Standard Deviation 52.4 fL (36.4-46.3); Red Blood Count 3.54 M/uL (4.20-5.40); White Blood Count 6.65 K/ul (4.8-10.8)
[2024-12-19 06:58] LABS: Blood Urea Nitrogen 8 mg/dl (6-23); Calcium 9.2 mg/dl (8.6-10.3); Carbon Dioxide > 45 mmol/L (21-32); Chloride 94 mmol/L (98-107); Glucose 138 mg/dl (70-99(Fasting)); Potassium 4.1 mmol/L (3.5-5.1); Sodium 144 mmol/L (136-145)
[2024-12-19] MEDS ORDERED: FUROSEMIDE 40 MG TAB PO SCH (09:00)
[2024-12-19] MEDS ORDERED: amLODIPine BESYLATE 5 MG TAB PO SCH (09:00)
[2024-12-19] MEDS ORDERED: LOSARTAN POTASSIUM 50 MG TAB PO SCH (09:00)
[2024-12-19] MEDS: DULoxetine HCL 60 MG CAP PO SCH (09:12)
[2024-12-19] MEDS: ATORVASTATIN 40 MG TAB PO SCH (09:12)
[2024-12-19] MEDS: PANTOprazole 40 MG TAB PO SCH (09:13)
[2024-12-19] MEDS: FOLIC ACID 1 MG TAB PO SCH (09:13)
[2024-12-19] MEDS: predniSONE 10 MG TABLET PO SCH (09:13)
[2024-12-19] MEDS: ENOXAPARIN INJ 40 MG/0.4 ML SYR SQ SCH (09:15)
[2024-12-19 10:32] LABS: Vitamin B12 283 pg/ml (180-914)
[2024-12-19 10:33] LABS: Folate (Folic Acid),Ser orPlas > 22.30 ng/ml (>5.38)
[2024-12-19] MEDS: LOPERAMIDE HCL 2 MG CAP PO STA (13:14)
[2024-12-19] MEDS: ACETAMINOPHEN 325 MG TAB PO PRN (16:37)
[2024-12-19] MEDS: AZITHROMYCIN 250 MG TAB PO SCH (16:50)
--- NOTE | 2024-12-19 17:48 | Hospitalist Progress Note ---
Date of Service December 19, 2024 Assessment & Plan (1) Pneumonia: Plan: .Patient reports rigors and "not feeling right". She reports feeling similarly in the past when she had PNA. Patient's CXR is suggestive of possible RUL bronchopneumonia. She is afebrile, HD stable, no leukocytosis. -Admit to medical -Check Procalcitonin, CBC with AM labs -Ceftriaxone and Azithromycin for treatment of presumed CAP -Patient will need to have followup CXR to document clearance of her pneumonia -Flutter valve and incentive spirometry (2) COPD (chronic obstructive pulmonary disease): Plan: Chronic. Patient with compensated chronic hypercarbic respiratory failure. Minimal wheezing noted on exam -Continue supplemental O2 -DuoNeb q 4 hours -Albuterol q3 hours PRN -Smoking cessation counseling -Nicotine patch per patient request -BiPAP as needed -Prednisone taper Patient is scheduled to see Pulmonary on 01/10/25. She has never had formal PFTs. Should have a sleep study as well - suspect may need nocturnal NIPPV (3) HLD (hyperlipidemia): Plan: Chronic. Stable -Continue Atorvastatin 40mg po daily (4) HTN (hypertension): Plan: Chronic. Blood pressure is borderline low -Will hold Amlodipine, Losartan and Lasix -Continue Carvedilol -Monitor -LR at 80mL/hr x 1L ordered -Encourage PO intake (5) Acute gastroenteritis: (6) Chronic respiratory failure with hypoxia and hypercapnia: (7) Vitamin B12 deficiency anemia: Plan 69-year-old woman with severe COPD on home oxygen presented with diarrhea, lightheadedness, tremors. Other family members were also sick with nausea vomiting and diarrhea. In the ED she was found to be mildly hypoxic and significantly hypercarbic. VBG 7.39/86 and bicarb on chemistry panel greater than 45, consistent with chronic/ compensated hypercarbia and respiratory alkalosis # acute gastroenteritisnorovirus is very prevalent in the community currently, symptoms seem to be improving, ordered Imodium as needed, stool BioFire if significant diarrhea, no recent antibiotics to raise suspicion of C. difficile. Dehydration treated with IV NS overnight. Reviewed BMP and sodium, potassium, BUN/Cr are normal today # mild acute exacerbation of severe COPD # possible right upper lobe pneumonia. procalcitonin was negative, has not had vomiting to increase her risk of aspiration - continue prednisone 40 mg, bronchodilators - continue ceftriaxone and azithromycin - continue supplemental oxygen # chronic hypoxic and hypercarbic respiratory failure. related to severe COPD and multiple sedating medications, potentially OHS with morbid obesity BMI 42, potentially EDER although denies snoring - has initial pulmonary appointment in December - was on BiPAP overnight however remains significantly hypercarbic - discussed with RT, will do overnight oximetry study and a.m. ABG to see if she will qualify for BiPAP which I suspect she will # left foot and ankle painI agree with her it does not seem like sciatica, could be neuropathic pain related to B12 deficiency or diabetic neuropathy, also need to consider peripheral arterial disease and will discuss with her whether it worsens with exertion # right knee effusion and buckling symptoms - this is following a fall some weeks ago, no dorinda instability on exam, suspect she may have a meniscus tear, she points out that she is a poor surgical candidate and I agree, we will try a hinged knee brace to see if this improves her ambulation and buckling symptoms. there is no evidence of septic joint based on physical examination # macrocytic anemiaordered vitamin B12 level and it is the low end of normal. She reports that she was diagnosed with B12 deficiency in the past but has not been taking any supplements recently. She is agreeable to 1000 mcg B12 IM daily while she is in the hospital then we will convert to 1000 mcg p.o. daily. her folate level was normal and she is on a daily folate supplement already # asterixis, falls - some component of acute illness, hypercarbia playing a role, also multiple sedating medications including high dose of gabapentin which can cause asterixis as well # tobacco smoking - counseled cessation, precontemplative at this time, warned no smoking around oxygen equipment # Anxiety -Continue Trazodone, Continue Duloxetine and Clonazepam Ppx - enoxaparin PT/OT consults, care coordination consult Lives on first floor of her home and other family is there at all times. Uses walker. Would benefit from bedside commode. Admission and Anticipated Discharge Date Admission Date: December 18, 2024 Subjective Kelly had nausea vomiting and diarrhea this week, other family is also have had gastroenteritis symptoms no diarrhea yet today however feels like she is about to go, no abdominal pain, no antibiotics the last 6 months other more chronic issues that are bothering her are left foot/calf pain, she had seen galvanizing pot runner who said it was sciatica but she does not think that is the case. she has some element of diabetic neuropathy in hands and feet she fell and injured her right knee some weeks ago since then it is mildly swollen and sometimes has buckled when she is trying to stand which is caused her to fall she does have chronic asterixis and daytime somnolence Physical Exam 2 Physical Exam: PHYSICAL EXAMINATION Last 24h vital signs reviewed, see documentation in flowsheet General: comfortable appearing, no distress HEENT: Normocephalic, atraumatic, pupils round and equal, sclerae anicteric, no conjunctival injection, moist mucus membranes. mild old appearing periorbital ecchymosis right eye Lungs: Normal respiratory effort. Clear to auscultation bilaterally. no wheezing, prolonged expiratory phase Heart: Regular rate and rhythm, no murmurs. No JVD Abdomen: Soft, nontender, nondistended. Bowel sounds present. Extremities: Warm, dry, well-perfused. No extremity edema. straight leg raise on left does not reproduce her foot and ankle pain symptoms. no deformity of either foot right knee with mild to moderate effusion, not inflamed or tender, anterior and posterior drawer are negative does not seem have any instability medially or laterally Neuro: Alert and oriented x 4, face symmetric, moves 4 extremities well, asterixis present Psych: Normal affect and behavior Results & Data Results & Data Vital Signs (Past 12 Hours) Vital Signs Temp Pulse Pulse Resp BP BP Pulse Ox 12/19/24 15:14 98.1 F 85 18 132/77 93 12/19/24 15:00 12/19/24 14:56 12/19/24 14:28 89 24 95 12/19/24 13:00 83 L 12/19/24 12:06 90 25 H 92 12/19/24 11:59 90 17 97 12/19/24 11:03 89 25 H 97 12/19/24 10:06 92 H 23 95 12/19/24 09:00 98 H 28 H 87 L 12/19/24 08:00 83 17 97 12/19/24 08:00 117/55 L 12/19/24 08:00 117/55 L 12/19/24 07:16 80 12/19/24 07:00 84 15 12/19/24 07:00 129/63 12/19/24 07:00 129/63 12/19/24 07:00 129/63 12/19/24 06:15 81 17 98 12/19/24 06:06 83 21 140/59 L 98 Pulse Ox Pulse Ox Pulse Ox O2 Del Method O2 Flow Rate O2 Flow Rate O2 Flow Rate 12/19/24 15:14 Nasal Cannula 4 12/19/24 15:00 Nasal Cannula 4 12/19/24 14:56 99 96 91 6 6 12/19/24 14:28 Nasal Cannula 3 12/19/24 13:00 Nasal Cannula 4 12/19/24 12:06 Nasal Cannula 4 12/19/24 11:59 Nasal Cannula 3 12/19/24 11:03 Nasal Cannula 6 12/19/24 10:06 Nasal Cannula 6 12/19/24 09:00 Nasal Cannula 6 12/19/24 08:00 Nasal Cannula 6 12/19/24 08:00 12/19/24 08:00 12/19/24 07:16 12/19/24 07:00 12/19/24 07:00 12/19/24 07:00 12/19/24 07:00 12/19/24 06:15 Nasal Cannula 6 12/19/24 06:06 Nasal Cannula 6 O2 Flow Rate 12/19/24 15:14 12/19/24 15:00 12/19/24 14:56 6 12/19/24 14:28 12/19/24 13:00 12/19/24 12:06 12/19/24 11:59 12/19/24 11:03 12/19/24 10:06 12/19/24 09:00 12/19/24 08:00 12/19/24 08:00 12/19/24 08:00 12/19/24 07:16 12/19/24 07:00 12/19/24 07:00 12/19/24 07:00 12/19/24 07:00 12/19/24 06:15 12/19/24 06:06 Laboratory Results 12/19/24 05:45 12/19/24 05:45 PG Care Time/CCT Total # of Minutes Spent Total Time Spent with Patient: Total time spent is greater than 50% in coordination of care (as documented) at patient's floor/unit and/or counseling patient: Coding Level of Care Code 28568 SUB INP/OBS CARE 3/50MIN Diagnoses Pneumonia J18.9 Laterality: right Lung location: unspecified part of lung Pneumonia type: due to unspecified organism COPD (chronic obstructive pulmonary disease) J44.9 HLD (hyperlipidemia) E78.5 HTN (hypertension) I10 Acute gastroenteritis K52.9 Chronic respiratory failure with hypoxia and hypercapnia J96.11; J96.12 Vitamin B12 deficiency anemia D51.9 (1) Pneumonia Laterality: right Lung location: unspecified part of lung Pneumonia type: d ue to unspecified organism Qualified Code(s): J18.9 - Pneumonia, unspecified organism
[2024-12-19] MEDS: NYSTATIN POWDER 15GM BTL EXT PRN (18:17)
[2024-12-19] MEDS: cefTRIAXone SODIUM 2,000 MG/50 ML BAG IV SCH (19:31)
[2024-12-19] MEDS ORDERED: LIDOCAINE 5% 1 PATCH TD PRN (21:20)
[2024-12-19] MEDS: CYCLOBENZAPRINE HCL 10 MG TAB PO STA (21:47)
[2024-12-20 06:04] LABS: iSTAT Arterial Blood Gas HCO3 50 meg/L (19-24); iSTAT Arterial Blood Gas pCO2 91 mmHg (35-46); iSTAT Arterial Blood Gas pH 7.35 (7.35-7.45); iSTAT Arterial Blood Gas pO2 83 mmHg (80-95); iSTAT Carbon Dioxide > 50 mmol/L (24-31); iSTAT Hematocrit 35 % (37-47); iSTAT Hemoglobin 11.9 g/dl (12.0-16.0); iSTAT Potassium 4.6 mmol/L (3.3-5.0); iSTAT Sodium 140 mmol/L (135-144)
--- NOTE | 2024-12-20 14:34 | Ultrasound Report ---
BILATERAL LOWER EXTREMITY ARTERIAL DOPPLER ULTRASOUND CLINICAL HISTORY: hx PAD, L>R leg pain COMPARISON STUDY: No previous studies for comparison. TECHNIQUE: Bilateral ankle to brachial indices were obtained. Grayscale, color and duplex Doppler son ography of the arterial systems of both lower extremities was performed. FINDINGS: Both ankle to brachial indices measured 1.08. No elevated velocities were identified within the lower extremities. Mild atherosclerotic plaque was noted. There is predominantly biphasic and tr iphasic flow throughout both lower extremities. Monophasic flow is noted within the bilateral peronea l arteries. No vessel occlusion is identified. IMPRESSION: 1. Normal bilateral ankle to brachial indices. 2. Mild atherosclerotic plaque within the lower extremities without evidence for a hemodynamically si gnificant stenosis. 3. Patent vessels. ACT 112: Negative or not required by law. Electronically signed by: Ayan Bolaños M.D. 12/20/2024 2:33 PM
[2024-12-20] MEDS: LOPERAMIDE HCL 2 MG CAP PO PRN (14:45)
[2024-12-20] MEDS: PNEUMOCOCCAL VACCINE (PCV20) 20-VAL CONJ-DIP CRM/PF 0.5 ML SYR IM ONE (18:23)
[2024-12-20] MEDS: INFLUENZA VACC TS2024-25(65y+)/PF (IIV3) 0.5mL Syr IM ONE (18:27)
[2024-12-20] MEDS ORDERED: clonazePAM 1 MG TAB PO PRN (18:52)
--- NOTE | 2024-12-20 19:02 | Hospitalist Progress Note ---
Date of Service December 20, 2024 Assessment & Plan (1) Pneumonia: (2) COPD (chronic obstructive pulmonary disease): (3) Acute gastroenteritis: (4) Chronic respiratory failure with hypoxia and hypercapnia: (5) Vitamin B12 deficiency anemia: Plan 69-year-old woman with severe COPD on home oxygen presented with diarrhea, lightheadedness, tremors. Other family members were also sick with nausea vomiting and diarrhea. In the ED she was found to be mildly hypoxic and significantly hypercarbic. VBG 7.39/86 and bicarb on chemistry panel greater than 45, consistent with chronic/ compensated hypercarbia and respiratory alkalosis # acute gastroenteritisnorovirus is very prevalent in the community currently, symptoms seem to be resolving/ resolved, ordered Imodium as needed. sodium and potassium are normal and creatinine is 0.4 today # mild acute exacerbation of severe COPD # possible right upper lobe pneumonia. procalcitonin was negative, has not had vomiting to increase her risk of aspiration - continue prednisone 40 mg, bronchodilators - continue ceftriaxone and azithromycin - change to oral - continue supplemental oxygen, now on her baseline 3 L per nasal cannula # chronic hypoxic and hypercarbic respiratory failure. related to severe COPD and multiple sedating medications, probably OHS with morbid obesity BMI 42, there was not any evidence of obstructive sleep apnea on her overnight oximetry - she had no significant desats on 3 L nasal cannula. a.m. ABG today 7.3 - we will work on qualifying her for AVAPS - has initial pulmonary appointment in December - continue nocturnal BiPAP - reduce sedating meds - she does not usually take her clonazepam 4 times a day so reduced to 1 mg twice daily plus+1 mg twice daily as needed, reduce trazodone to 100 mg at bedtime, reduce gabapentin to 600 mg 4 times daily # left foot and ankle painI agree with her it does not seem like sciatica, could be neuropathic pain related to B12 deficiency or diabetic neuropathy, also need to consider peripheral arterial disease - she does have a history of PAD with stents in her legs approximately 5 years ago. Obtained lower extremity arterial duplex and there were no significant stenoses. - Continue B12 supplementation, add empiric B1 supplementation, check TSH in a.m. for neuropathy workup # right knee effusion and buckling symptoms - this is following a fall some weeks ago, no dorinda instability on exam, suspect she may have a meniscus tear, she points out that she is a poor surgical candidate and I agree, we will try a hinged knee brace to see if this improves her ambulation and buckling symptoms. there is no evidence of septic joint based on physical examination # macrocytic anemiaordered vitamin B12 level and it is the low end of normal. She reports that she was diagnosed with B12 deficiency in the past but has not been taking any supplements recently. She is agreeable to 1000 mcg B12 IM daily while she is in the hospital then we will convert to 1000 mcg p.o. daily. her folate level was normal and she is on a daily folate supplement already # asterixis, falls - some component of acute illness, hypercarbia playing a role, also multiple sedating medications including high dose of gabapentin which can cause asterixis as well - reduce medications as discussed above, assess tolerance # tobacco smoking - counseled cessation, precontemplative at this time, warned no smoking around oxygen equipment. has nicotine patch # Anxiety -Continue Trazodone, Continue Duloxetine and Clonazepam - dose adjustments as above Ppx - enoxaparin PT/OT consults - recommended rehab, she currently does not want to do rehab however her mobility was very poor we will see how she does in the next day or 2 since she did not seem safe for home discharge based on evaluations yesterday, care coordination consult Lives on first floor of her home and other family is there at all times. Uses walker. Would benefit from bedside commode. Admission and Anticipated Discharge Date Admission Date: December 20, 2024 Subjective Kelly does feel better today, she was able to sleep last night, she has not had any diarrhea since early yesterday morning this feels like she may have a bowel movement soon, no further nausea vomiting Physical Exam 2 Physical Exam: PHYSICAL EXAMINATION Last 24h vital signs reviewed, see documentation in flowsheet General: resting in bed HEENT: Normocephalic, atraumatic, pupils round and equal, sclerae anicteric, no conjunctival injection, moist mucus membranes. mild old appearing periorbital ecchymosis right eye Lungs: Normal respiratory effort. Clear to auscultation bilaterally. mild expiratory wheezing, prolonged expiratory phase Heart: Regular rate and rhythm, no murmurs. No JVD Abdomen: Soft, nontender, nondistended. Bowel sounds present. Extremities: Warm, dry, well-perfused. No extremity edema. 2+ DP and PT pulses on left foot. moderate knee effusion Neuro: Alert and oriented x 4, face symmetric, moves 4 extremities well, asterixis present Psych: Normal affect and behavior Results & Data Results & Data Vital Signs (Past 12 Hours) Vital Signs Temp Pulse Resp BP Pulse Ox O2 Del Method O2 Flow Rate 12/20/24 15:44 104 H 18 98 Nasal Cannula 3 12/20/24 14:16 98.2 F 86 18 151/86 H 90 Nasal Cannula 3 12/20/24 11:16 78 18 93 Nasal Cannula 3 12/20/24 09:00 Nasal Cannula 4 12/20/24 08:04 98.6 F 86 20 116/72 90 Nasal Cannula 3.5 12/20/24 07:22 80 18 99 Nasal Cannula 3 Laboratory Results 12/19/24 05:45 12/19/24 05:45 PG Care Time/CCT Total # of Minutes Spent Total Time Spent with Patient: Total time spent is greater than 50% in coordination of care (as documented) at patient's floor/unit and/or counseling patient: Coding Level of Care Code 42319 SUB INP/OBS CARE 3/50MIN Diagnoses Pneumonia J18.9 Laterality: right Lung location: unspecified part of lung Pneumonia type: due to unspecified organism COPD (chronic obstructive pulmonary disease) J44.9 Acute gastroenteritis K52.9 Chronic respiratory failure with hypoxia and hypercapnia J96.11; J96.12 Vitamin B12 deficiency anemia D51.9 (1) Pneumonia Laterality: right Lung location: unspecified part of lung Pneumonia type: d ue to unspecified organism Qualified Code(s): J18.9 - Pneumonia, unspecified organism
[2024-12-20] MEDS: GABAPENTIN 600 MG TAB PO SCH (21:24)
[2024-12-20] MEDS: CYCLOBENZAPRINE HCL 10 MG TAB PO STA (21:24)
[2024-12-20] MEDS: clonazePAM 1 MG TAB PO SCH (21:24)
[2024-12-20] MEDS: THIAMINE HCL 100 MG TAB PO SCH (21:24)
[2024-12-20] MEDS: traZODone HCL 100 MG TAB PO SCH (21:25)
[2024-12-21] MEDS: cefUROXime axetil 500 MG TAB PO SCH (08:31)
--- NOTE | 2024-12-21 09:59 | Electrocardiogram Report ---
Test Reason : Blood Pressure : */* mmHG Vent. Rate : 82 BPM Atrial Rate : 82 BPM P-R Int : 160 ms QRS Dur : 102 ms QT Int : 370 ms P-R-T Axes : 54 62 58 degrees QTcB Int : 432 ms Normal sinus rhythm Incomplete right bundle branch block Borderline ECG No previous ECGs available Confirmed by Obey Whaley ([id number]) on 12/21/2024 9:59:23 AM Referred By: REFERRED SELF Confirmed By: Obey Whaley
--- NOTE | 2024-12-21 18:56 | Hospitalist Progress Note ---
Date of Service December 21, 2024 Assessment & Plan (1) Pneumonia: (2) COPD (chronic obstructive pulmonary disease): (3) Acute gastroenteritis: (4) Chronic respiratory failure with hypoxia and hypercapnia: (5) Vitamin B12 deficiency anemia: Plan 69-year-old woman with severe COPD on home oxygen presented with diarrhea, lightheadedness, tremors. Other family members were also sick with nausea vomiting and diarrhea. In the ED she was found to be mildly hypoxic and significantly hypercarbic. VBG 7.39/86 and bicarb on chemistry panel greater than 45, consistent with chronic/ compensated hypercarbia and respiratory alkalosis # acute gastroenteritis resolved # mild acute exacerbation of severe COPD # possible right upper lobe pneumonia. procalcitonin was negative, has not had vomiting to increase her risk of aspiration - continue prednisone 30 mg ordered for tapering dose, bronchodilators - continue cefuroxime and azithromycin - continue supplemental oxygen, now on her baseline 3 L per nasal cannula - current level of dyspnea is probably her baseline # chronic hypoxic and hypercarbic respiratory failure. related to severe COPD and multiple sedating medications, probably OHS with morbid obesity BMI 42, there was not any evidence of obstructive sleep apnea on her overnight oximetry - she had no significant desats on 3 L nasal cannula. a.m. ABG 7.3 - seems like she may have refused BiPAP last night, unclear - has initial pulmonary appointment in December - reduce sedating meds - reduced trazodone and gabapentin reduce gabapentin down to 400 mg today since she has not had any change in her pain symptoms - asterixis is improved # left foot and ankle painI agree with her it does not seem like sciatica, could be neuropathic pain related to B12 deficiency or diabetic neuropathy, also need to consider peripheral arterial disease - she does have a history of PAD with stents in her legs approximately 5 years ago. Obtained lower extremity arterial duplex and there were no significant stenoses. - Continue B12 supplementation, add empiric B1 supplementation, TSH normal ranges 0.47 # right knee effusion and buckling symptoms - this is following a fall some weeks ago, no doirnda instability on exam, suspect she may have a meniscus tear, she points out that she is a poor surgical candidate and I agree, we will try a hinged knee brace to see if this improves her ambulation and buckling symptoms. there is no evidence of septic joint based on physical examination # macrocytic anemiaordered vitamin B12 level and it is the low end of normal. She reports that she was diagnosed with B12 deficiency in the past but has not been taking any supplements recently. She is agreeable to 1000 mcg B12 IM daily while she is in the hospital then we will convert to 1000 mcg p.o. daily. her folate level was normal and she is on a daily folate supplement already # asterixis, falls - some component of acute illness, hypercarbia playing a role, also multiple sedating medications including high dose of gabapentin which can cause asterixis as well - reduce medications as discussed above, assess tolerance. improved # tobacco smoking - counseled cessation, precontemplative at this time, warned no smoking around oxygen equipment. has nicotine patch # Anxiety -Continue Trazodone, Continue Duloxetine and Clonazepam - dose adjustments as above Ppx - enoxaparin PT/OT consults - recommended rehab, she currently does not want to do rehab however her mobility was very poor we will see how she does in the next day or 2 since she did not seem safe for home discharge based on evaluations yesterday, care coordination consult Lives on first floor of her home and other family is there at all times. Uses walker. Would benefit from bedside commode. I updated her grandson's in the room today 12/21 she reports that her mobility is improved a lot since and she plans to go home, targeting Monday Admission and Anticipated Discharge Date Admission Date: December 20, 2024 Subjective Kelly is feeling a lot better today, she has walked herself back and forth to the bathroom she feels stronger, she is coughing up a lot of greenish sputum, her dyspnea has improved a lot may be at baseline currently RT note says she refused BiPAP last night but Kelly says that he did not come to put it on perhaps she was overly sedated when they came related to medications and cannot remember? Robaxin was given for some muscle spasm. based on conversation today it seems unlikely that she would tolerate chronic BiPAP or AVAPS Physical Exam Physical Exam: PHYSICAL EXAMINATION Last 24h vital signs reviewed, see documentation in flowsheet General: resting in bed HEENT: Normocephalic, atraumatic, pupils round and equal, sclerae anicteric, no conjunctival injection, moist mucus membranes. mild old appearing periorbital ecchymosis right eye Lungs: Normal respiratory effort. Clear to auscultation bilaterally. very distant bilaterally only 1 slight wheeze in left base, prolonged expiratory phase, kyphosis Heart: Regular rate and rhythm, no murmurs. No JVD Abdomen: Soft, nontender, nondistended. Bowel sounds present. Extremities: Warm, dry, well-perfused. No extremity edema. range of motion of left foot and palpation does not reproduce her pain. moderate knee effusion Neuro: Alert and oriented x 4, face symmetric, moves 4 extremities well, Mild tremor present no dorinda asterixis Psych: Normal affect and behavior Results & Data Results & Data Vital Signs (Past 12 Hours) Vital Signs Temp Pulse Resp BP Pulse Ox O2 Del Method O2 Flow Rate 12/21/24 15:36 93 H 17 98 Nasal Cannula 3 12/21/24 15:11 99.1 F 94 H 16 120/75 93 Nasal Cannula 4 12/21/24 11:37 89 17 99 Nasal Cannula 3 12/21/24 08:00 Nasal Cannula 3 12/21/24 07:34 78 20 94 Nasal Cannula 4 12/21/24 07:10 97.5 F L 76 16 120/70 100 Nasal Cannula 4 PG Care Time/CCT Total # of Minutes Spent Total Time Spent with Patient: Total time spent is greater than 50% in coordination of care (as documented) at patient's floor/unit and/or counseling patient: Coding Level of Care Code 10005 SUB INP/OBS CARE 2MIN Diagnoses Pneumonia J18.9 Laterality: right Lung location: unspecified part of lung Pneumonia type: due to unspecified organism COPD (chronic obstructive pulmonary disease) J44.9 Acute gastroenteritis K52.9 Chronic respiratory failure with hypoxia and hypercapnia J96.11; J96.12 Vitamin B12 deficiency anemia D51.9 (1) Pneumonia Laterality: right Lung location: unspecified part of lung Pneumonia type: due to unspecified organism Qualified Code(s): J18.9 - Pneumonia, unspecified organism
[2024-12-21] MEDS: CYCLOBENZAPRINE HCL 10 MG TAB PO STA (19:41)
[2024-12-21] MEDS: GABAPENTIN 400 MG CAP PO SCH (19:41)
--- NOTE | 2024-12-22 15:04 | XRay Report ---
INDICATION: Pain and injury. TECHNIQUE: 2 views of the left ankle. 2 views of the left foot. 2 views of the left tibia/fibula. COMPARISON: No relevant priors. FINDINGS: Evaluation of the left tibia/fibula, left foot and left ankle. No acute fracture or dislocation. No lytic or blastic bony lesions seen. Mild diffuse interphalangeal joint space loss. First metatarsophalangeal joint space loss. Soft tissue swelling. IMPRESSION: Soft tissue swelling without acute osseous abnormality evident. Electronically signed by Jack Delacruz 12-22-2024 3:04 PM
--- NOTE | 2024-12-22 18:25 | Hospitalist Progress Note ---
Date of Service December 22, 2024 Assessment & Plan (1) Pneumonia: (2) COPD (chronic obstructive pulmonary disease): (3) Acute gastroenteritis: (4) Chronic respiratory failure with hypoxia and hypercapnia: (5) Vitamin B12 deficiency anemia: Plan 69-year-old woman with severe COPD on home oxygen presented with diarrhea, lightheadedness, tremors. Other family members were also sick with nausea vomiting and diarrhea. In the ED she was found to be mildly hypoxic and significantly hypercarbic. VBG 7.39/86 and bicarb on chemistry panel greater than 45, consistent with chronic/ compensated hypercarbia and respiratory alkalosis # acute gastroenteritis resolved # mild acute exacerbation of severe COPD # possible right upper lobe pneumonia. procalcitonin was negative, has not had vomiting to increase her risk of aspiration - continue prednisone increase back to 40 mg for increased dyspnea, bronchodilators - continue cefuroxime and azithromycin - continue supplemental oxygen, now on her baseline 3 L per nasal cannula # chronic hypoxic and hypercarbic respiratory failure. related to severe COPD and multiple sedating medications, probably OHS with morbid obesity BMI 42, there was not any evidence of obstructive sleep apnea on her overnight oximetry - she had no significant desats on 3 L nasal cannula. a.m. ABG 7.3 - seems like she may have refused BiPAP, unclear - has initial pulmonary appointment in December Dr. Pierre - reduce sedating meds - reduced trazodone to 100 mg successfully, increased pain with mary jo 400 tid --> increase back to 600 (home was 800) # left foot and ankle painI agree with her it does not seem like sciatica, could be neuropathic pain related to B12 deficiency or diabetic neuropathy, also need to consider peripheral arterial disease - she does have a history of PAD with stents in her legs approximately 5 years ago. Obtained lower extremity arterial duplex and there were no significant stenoses. - Continue B12 supplementation, add empiric B1 supplementation, TSH normal ranges 0.47 - ordered xrays LLE # right knee effusion and buckling symptoms - this is following a fall some weeks ago, no dorinda instability on exam, suspect she may have a meniscus tear, she points out that she is a poor surgical candidate and I agree, we will try a hinged knee brace to see if this improves her ambulation and buckling symptoms. there is no evidence of septic joint based on physical examination # macrocytic anemiaordered vitamin B12 level and it is the low end of normal. She reports that she was diagnosed with B12 deficiency in the past but has not been taking any supplements recently. She is agreeable to 1000 mcg B12 IM daily while she is in the hospital then we will convert to 1000 mcg p.o. daily. her folate level was normal and she is on a daily folate supplement already -AM CBC # asterixis, falls - some component of acute illness, hypercarbia playing a role, also multiple sedating medications including high dose of gabapentin which can cause asterixis as well - reduce medications as discussed above, assess tolerance. improved # tobacco smoking - counseled cessation, precontemplative at this time, warned no smoking around oxygen equipment. has nicotine patch # Anxiety -Continue Trazodone, Continue Duloxetine and Clonazepam - dose adjustments as above Ppx - enoxaparin PT/OT consults - recommended rehab, she currently does not want to do rehab however her mobility was very poor we will see how she does in the next day or 2 since she did not seem safe for home discharge based on evaluations yesterday, care coordination consult Lives on first floor of her home and other family is there at all times. Uses walker. Would benefit from bedside commode. I updated her grandson's in the room today 12/21 she reports that her mobility is improved a lot since and she plans to go home, targeting Monday Admission and Anticipated Discharge Date Admission Date: December 20, 2024 Subjective her left lower extremity pain is worse today it is really driving her knots, she has some of the same pain in the right lower extremity she feels like her hands are clumsy usually notably we reduced her gabapentin yesterday she is somewhat more dyspneic today compared to yesterday, she did get up and go to the bathroom without any assistance I reminded her not to do that because of the risk of fall length Physical Exam Physical Exam: PHYSICAL EXAMINATION Last 24h vital signs reviewed, see documentation in flowsheet General: awake sitting in bed HEENT: Normocephalic, atraumatic, pupils round and equal, sclerae anicteric, no conjunctival injection, moist mucus membranes. mild old appearing periorbital ecchymosis right eye Lungs: Normal respiratory effort. Clear to auscultation bilaterally. very distant bilaterally only 1 slight wheeze in left base, prolonged expiratory phase, kyphosis Heart: Regular rate and rhythm, no murmurs. No JVD Abdomen: Soft, nontender, nondistended. Bowel sounds present. Extremities: Warm, dry, well-perfused. No extremity edema. L foot exam unchanged - remains unremarkable. has 5/5 dorsi and plantar flexion and intact fine touch Neuro: Alert and oriented x 4, face symmetric, moves 4 extremities well, Mild tremor unchanged Psych: Normal affect and behavior Results & Data Results & Data Vital Signs (Past 12 Hours) Vital Signs Temp Pulse Resp BP Pulse Ox O2 Del Method O2 Flow Rate 12/22/24 15:32 90 17 94 Nasal Cannula 2 12/22/24 14:53 99.1 F 90 16 133/70 94 Nasal Cannula 2 12/22/24 11:10 88 15 95 Nasal Cannula 3 12/22/24 08:01 97.9 F 82 18 123/72 93 Nasal Cannula 3 12/22/24 08:00 Nasal Cannula 3 12/22/24 07:47 89 15 97 Nasal Cannula 3 PG Care Time/CCT Total # of Minutes Spent Total Time Spent with Patient: Total time spent is greater than 50% in coordination of care (as documented) at patient's floor/unit and/or counseling patient: Coding Level of Care Code 74042 SUB INP/OBS CARE 2MIN Diagnoses Pneumonia J18.9 Laterality: right Lung location: unspecified part of lung Pneumonia type: due to unspecified organism COPD (chronic obstructive pulmonary disease) J44.9 Acute gastroenteritis K52.9 Chronic respiratory failure with hypoxia and hypercapnia J96.11; J96.12 Vitamin B12 deficiency anemia D51.9 (1) Pneumonia Laterality: right Lung location: unspecified part of lung Pneumonia type: due to unspecified organism Qualified Code(s): J18.9 - Pneumonia, unspecified organism
[2024-12-22] MEDS: GABAPENTIN 300 MG CAP PO SCH (20:37)
[2024-12-22] MEDS: CYCLOBENZAPRINE HCL 10 MG TAB PO PRN (20:37)
[2024-12-23 07:28] LABS: Hematocrit (blood only) 36.9 % (37.0-47.0); Hemoglobin 11.8 g/dl (12.0-16.0); Mean Corpuscular Hemoglobin 33.4 pg (25.0-34.0); Mean Corpuscular Volume 104.5 fL (80.0-100.0); Mean Platelet Volume 9.4 fL (9.4-12.4); Platelet Count 281 K/uL (130-400); RDW Coefficient of Variation 13.6 % (11.5-14.5); RDW Standard Deviation 52.2 fL (36.4-46.3); Red Blood Count 3.53 M/uL (4.20-5.40); White Blood Count 8.96 K/ul (4.8-10.8)
[2024-12-23 07:53] VITALS: TEMP 98.2
--- NOTE | 2024-12-23 08:42 | Electrocardiogram Report ---
Test Reason : Blood Pressure : */* mmHG Vent. Rate : 82 BPM Atrial Rate : 82 BPM P-R Int : 160 ms QRS Dur : 102 ms QT Int : 370 ms P-R-T Axes : 54 62 58 degrees QTcB Int : 432 ms Normal sinus rhythm Incomplete right bundle branch block Borderline ECG No previous ECGs available Confirmed by Obey Whaley ([id number]) on 12/21/2024 9:59:23 AM Also confirmed by Obey Whaley ([id number]), supervising editor trailer Oscar Day ([id number]) on 12/23/2024 8:42:42 AM Referred By: REFERRED SELF Confirmed By: Obey Whaley
[2024-12-23 08:44] LABS: BUN Creatinine Ratio 29.8 (10-20); Calcium 9.1 mg/dl (8.6-10.3)
[2024-12-23] MEDS: predniSONE 20 MG TAB PO SCH (10:02)
[2024-12-23 12:30] VITALS: BP 116/81; PULSE 80; RESP 20; O2SAT 94
[2024-12-23] MEDS: AZITHROMYCIN 250 MG TAB PO ONE (13:33)
[2024-12-23] MEDS: GABAPENTIN 800 MG TAB PO ONE (13:33)
--- NOTE | 2024-12-23 15:00 | Electrocardiogram Report ---
Test Reason : Blood Pressure : */* mmHG Vent. Rate : 102 BPM Atrial Rate : 102 BPM P-R Int : 160 ms QRS Dur : 102 ms QT Int : 340 ms P-R-T Axes : 65 79 61 degrees QTcB Int : 443 ms Sinus tachycardia with Premature atrial complexes Otherwise normal ECG When compared with ECG of 18-Dec-2024 15:36, Premature atrial complexes are now Present Incomplete right bundle branch block is no longer Present Confirmed by Obey Whaley ([id number]) on 12/23/2024 3:00:09 PM Referred By: REFERRED SELF Confirmed By: Obey Whaley
--- NOTE | 2024-12-24 11:30 | Discharge Summary ---
Discharge Summary Date of Service December 24, 2024 Principal Dx & Hospital Course #1 = Principal Diagnosis (1) Pneumonia: (2) COPD (chronic obstructive pulmonary disease): (3) Acute gastroenteritis: (4) Chronic respiratory failure with hypoxia and hypercapnia: (5) Vitamin B12 deficiency anemia: (6) Disorder of sural nerve: Plan 69-year-old woman with severe COPD on home oxygen presented with diarrhea, lightheadedness, tremors. Other family members were also sick with nausea vomiting and diarrhea. In the ED she was found to be mildly hypoxic and significantly hypercarbic. VBG 7.39/86 and bicarb on chemistry panel greater than 45, consistent with chronic/ compensated hypercarbia and respiratory alkalosis # acute gastroenteritis resolved, was probably viral # acute exacerbation of severe COPD # possible right upper lobe pneumonia. procalcitonin was negative, has not had vomiting to increase her risk of aspiration - improved with steroids, bronchodilators, antibiotics for CAP - continue prednisone taper over 2 weeks which will get her to her intake pulmonary appointment with Dr. Pierre - completed azithromycin, complete total 7 day course with ceftriaxone --> cefuroxime - has nebs at home but no control inhaler. Prescribed trelegy, which she had used in the past - continue supplemental oxygen, now on her baseline 3 L per nasal cannula # chronic hypoxic and hypercarbic respiratory failure. related to severe COPD and multiple sedating medications, probably OHS with morbid obesity BMI 42, there was not any evidence of obstructive sleep apnea on her overnight oximetry - she had no significant desats on 3 L nasal cannula. a.m. ABG 7.3 - seems like she may have refused BiPAP, unclear. Potentially a candidate for Trilogy but unclear whether she will use it - has initial pulmonary appointment in December Dr. Pierre - reduce sedating meds - reduced trazodone to 100 mg successfully, increased pain with decreased dose of gabapentin so had to go back up to usual dose 800 tid # sural nerve disorder # PAD # left foot and ankle pain saw deputy prosecuting attorney who thought it was sciatica. I agree with her it does not seem like sciatica, straight leg rasises were negative and no back/buttock/upper leg pain at all. Pain is neuropathic in character. Distribution fits left sural nerve - neuropathy/neuritis, entrapment - no hx surgeries in this area -xrays LLE were negative -LE arterial duplex was negative for any significant arterial stenoses. Reports prior LE arterial stents in past. -replace B12 -did not tolerate decrease in gabapentin -made referral to pain clinic, consider injection # right knee effusion and buckling symptoms - this is following a fall some weeks ago, no dorinda instability on exam, suspect she may have a meniscus tear, she points out that she is a poor surgical candidate and I agree, we will try a hinged knee brace to see if this improves her ambulation and buckling symptoms. there is no evidence of septic joint based on physical examination # macrocytic anemiaordered vitamin B12 level and it is the low end of normal. She reports that she was diagnosed with B12 deficiency in the past but has not been taking any supplements recently. She was agreeable to 1000 mcg B12 IM daily while she is in the hospital then we will convert to 1000 mcg p.o. daily. her folate level was normal and she is on a daily folate supplement already -recheck B12 level in primary care after replacement, needs chronic supplementation # asterixis, falls - some component of acute illness, hypercarbia playing a role, also multiple sedating medications including high dose of gabapentin which can cause asterixis as well - reduced medications as discussed above, assess tolerance. improved # tobacco smoking - counseled cessation, precontemplative at this time, warned no smoking around oxygen equipment. has nicotine patch # Anxiety -Continue Trazodone, Continue Duloxetine and Clonazepam - dose adjustments as above PT/OT consults - recommended rehab, she refused, improved to her recent baseline which is poor. Mostly bedbound uses walker to get to bathroom, stays on first floor.. Lots of family support at home 22/05. Discharged with home health PT and OT Notes For Next Care Provider replace and recheck B12 chronic hypercarbic and hypoxic respiratory failure - candidate for home trilogy? has pulmonary appt 2 weeks referred to pain clinic for L sural nerve pain Medication Changes From Visit trazodone decreased prednisone 2 week taper added trelegy inhaler Admission HPI Per Admitting Provider Kelly Bundy is a 69yo female with history of COPD on home O2 3L, MS, HTN and HLP presenting from home with complaint of "not feeling right". Patient thinks that yesterday she felt ok with no acute complaints. Today she woke up and felt very dizzy and lightheaded, she had some blurry vision as well as difficulty remembering the day before. Also with generalized weakness, rigors and profuse, watery diarrhea. Patient had outpatient labs performed and was contacted and told to come to the ER due to high bicarbonate levels. Patient denies fever, chills, chest pain, tightness, palpitations. No abdominal pain, nausea, vomiting. In the ER patient placed on BiPAP due to elevation pCO2 levels on VBG Discharge Exam PHYSICAL EXAMINATION Last 24h vital signs reviewed, see documentation in flowsheet General: awake sitting in bed HEENT: Normocephalic, atraumatic, pupils round and equal, sclerae anicteric, no conjunctival injection, moist mucus membranes. mild old appearing periorbital ecchymosis right eye Lungs: Normal respiratory effort. Clear to auscultation bilaterally. very distant, mild bibasilar exp wheezes, prolonged expiratory phase, kyphosis Heart: Regular rate and rhythm, no murmurs. No JVD Abdomen: Soft, nontender, nondistended. Bowel sounds present. Extremities: Warm, dry, well-perfused. No extremity edema. L foot exam unremarkable. distal strength intact Neuro: Alert and oriented x 4, face symmetric, moves 4 extremities well, Mild tremor unchanged Psych: Normal affect and behavior Discharge Plan Discharge Items Patient Disposition: Home - Home Health Services Reason For Visit: DIARRHEA, DIZZINESS, RIGORS Discharge Diagnosis: CAP, acute exacerbation of severe COPD, Acute gastroenteritis Activity: Resume your previous activity Weightbearing: Full weightbearing Non-emergency contact: Primary Care Provider and Transportation Equipment Painter Call non-emergency contact if: you have any medication questions and your symptoms worsen Follow-up/Referrals: Jose Pierre MD, [facility] [Physician] - 01/10/25 12:45 pm Kaden Toth [Primary Care Provider] - Diet: Regular Addtl Attending Provider Instructions: You were treated for pneumonia and exacerbation of COPD The diarrhea can sometimes be caused by pneumonia, but its also possible you had a viral infection that caused gastroenteritis (like norovirus or mild influenza) I prescribed tapering dose of prednisone for your lungs - this will be running out about when you see the incubator operator Dr. Pierre, he can reassess you I prescribed trelegy inhaler to control COPD and prevent exacerbations Use your nebulizer as needed and use your home oxygen Some of the tremor and falls as well as sleepiness is related to chronic respiratory failure (not breathing out enough carbon dioxide) Sedating meds like gabapentin, trazodone, klonopin etc make this problem worse Do your best to use as little of these type of medications that you can get away with -it seems like you're tolerating reducing the trazodone to 100 mg (one tablet) at bedtime -we tried reducing the gabapentin but your leg pain was worse, so we'll leave that alone I think your foot and ankle pain is peripheral nerve pain, potentially related to inflammation, neuropathy, or entrapment of the sural nerve. Try to keep pressure off your left calf. I made a referral to pain clinic to see if they can help with this and see whether you would be a candidate for an injection. You could also try seeing a different deputy prosecuting attorney. You have a B12 deficiency - we treated this with injections in the hospital. Keep taking B12 supplement 1000 mcg per day and follow up with your primary care provider. The dose may be reduced if your B12 stores improve. B12 deficiency can cause nerve problems like neuropathy and poor balance / falls. It would also be a good idea to supplement B1 (thiamine). Take 100 mg twice a day for a month, then decrease to 100 mg daily and continue. You had low blood pressure in the hospital. Even when we held amlodipine, losartan and furosemide your blood pressure was normal. -continue carvedilol -don't take furosemide if you're having diarrhea - resume it once the diarrhea is resolved -stop taking amlodipine -hold the losartan - follow up in primary care and talk about whether it should be restarted, potentially at a lower dose -if you can keep track of your BP at home and take a log to your doctor it will help. Home BP cuffs are available in drugstores and online It was a pleasure taking care of you in the hospital, Stephanie Sarabia MD Pending Studies at Discharge: No Stand-Alone Forms: My P2i, Smoking Cessation Medications and DC Order Prescriptions: New cefuroxime axetil 500 mg Tablet 500 mg PO BID Qty: 8 0RF trazodone 100 mg Tablet 100 mg PO HS Qty: 0 0RF prednisone 10 mg tablet See Taper PO DIRECTED Qty: 35 0RF Taper: Taper, Blank 40 mg DAILY for 5 Days 20 mg DAILY for 5 Days 10 mg DAILY for 5 Days Rx Instructions: see taper instructions Trelejuan carlos Ellipta 100-62.5-25 mcg blister with device 1 inh inhalation DAILY Qty: 60 0RF cyanocobalamin (vitamin B-12) 1,000 mcg tablet 1,000 mcg PO DAILY Qty: 30 0RF thiamine HCl (vitamin B1) 100 mg tablet 100 mg PO BID Qty: 60 0RF Continued cetirizine [Zyrtec] 10 mg tablet 10 mg PO DAILY furosemide 40 mg tablet 40 mg PO DAILY atorvastatin 40 mg tablet 40 mg PO DAILY carvedilol 6.25 mg tablet 6.25 mg PO BID gabapentin 800 mg tablet 800 mg PO TID clonazepam 2 mg tablet 1 mg PO QID folic acid 1 mg tablet 1 mg PO DAILY duloxetine 60 mg capsule,delayed release(DR/EC) 120 mg PO DAILY ferrous sulfate 325 mg (65 mg iron) tablet 325 mg PO DAILY Held pantoprazole 40 mg tablet,delayed release (DR/EC) 40 mg PO DAILY Hold Instructions: Resume on 12/28/24. try to hold until you finish the antibiotic - interferes with absorption losartan 100 mg tablet 100 mg PO DAILY Hold Instructions: Resume on 01/20/25. hold until you discuss with primary care - BP was low in hospital Discontinued trazodone 100 mg tablet 200 mg PO HS amlodipine 10 mg tablet 10 mg PO DAILY Discharge Orders: Discharge Order (Routine); Ordered 12/23/24 Ordered By: Stephanie Sarabia Admission Data Admit Date/Time: 12/20/24 11:32 Attending Provider: Stephanie Sarabia Admit Provider: Jody Jones Primary Care Provider: Kaden Toth Other Providers: Jody Jones Other Interventions: Discharge Summary Assessment (RN) Last Done: 12/23/24 13:48 Hospital Stay Data Consultations 12/18/24 18:47 ED Decision to Admit Stat Diagnostic Imagining Performed 12/20/24 11:32 US arterial duplex LE BI Urgent Pending Results Patient Have Any Pending Studies at Discharge: No Discharge Instructions Given to Patient (Per Discharging Provider) You were treated for pneumonia and exacerbation of COPD The diarrhea can sometimes be caused by pneumonia, but its also possible you had a viral infection that caused gastroenteritis (like norovirus or mild influenza) I prescribed tapering dose of prednisone for your lungs - this will be running out about when you see the incubator operator Dr. Pierre, he can reassess you I prescribed trelegy inhaler to control COPD and prevent exacerbations Use your nebulizer as needed and use your home oxygen Some of the tremor and falls as well as sleepiness is related to chronic respiratory failure (not breathing out enough carbon dioxide) Sedating meds like gabapentin, trazodone, klonopin etc make this problem worse Do your best to use as little of these type of medications that you can get away with -it seems like you're tolerating reducing the trazodone to 100 mg (one tablet) at bedtime -we tried reducing the gabapentin but your leg pain was worse, so we'll leave that alone I think your foot and ankle pain is peripheral nerve pain, potentially related to inflammation, neuropathy, or entrapment of the sural nerve. Try to keep pressure off your left calf. I made a referral to pain clinic to see if they can help with this and see whether you would be a candidate for an injection. You could also try seeing a different deputy prosecuting attorney. You have a B12 deficiency - we treated this with injections in the hospital. Keep taking B12 supplement 1000 mcg per day and follow up with your primary care provider. The dose may be reduced if your B12 stores improve. B12 deficiency can cause nerve problems like neuropathy and poor balance / falls. It would also be a good idea to supplement B1 (thiamine). Take 100 mg twice a day for a month, then decrease to 100 mg daily and continue. You had low blood pressure in the hospital. Even when we held amlodipine, losartan and furosemide your blood pressure was normal. -continue carvedilol -don't take furosemide if you're having diarrhea - resume it once the diarrhea is resolved -stop taking amlodipine -hold the losartan - follow up in primary care and talk about whether it should be restarted, potentially at a lower dose -if you can keep track of your BP at home and take a log to your doctor it will help. Home BP cuffs are available in drugstores and online It was a pleasure taking care of you in the hospital, Stephanie Sarabia MD Total Time Total Time Spent Total Time Spent (In Minutes): I spent 50 minutes coordinating care for discharge including reviewing vital signs, xrays, counseling and examining patient discussions with bedside RN and rn patient care, arranging referral, discharge prescriptions and instructions Coding Level of Care Code 83627 INP/OBS DISCH >30 MIN Diagnoses Pneumonia J18.9 Laterality: right Lung location: unspecified part of lung Pneumonia type: due to unspecified organism COPD (chronic obstructive pulmonary disease) J44.9 Acute gastroenteritis K52.9 Chronic respiratory failure with hypoxia and hypercapnia J96.11; J96.12 Vitamin B12 deficiency anemia D51.9 Disorder of sural nerve G57.80
[2024-12-26] MEDS ORDERED: CYANOCOBALAMIN 1000 MCG/ML VIAL IM SCH (09:00)
== END 2024-12-23 14:47 | disposition home health service (06) | DRG 194 ==
LOC: ED 15:28 → EDINP 15:28 → SUATTDRO 20:26 → 3W 22:13